=== PATIENT | female | born 1960 | race Caucasian/White ===

== ENCOUNTER 2022-12-24 23:26 | Emergency (ER) | payer SELFPAY ==
[2022-12-25] MEDS ORDERED: ETOMIDATE 20 MG/10 ML VIAL IV ONE (01:29)
[2022-12-25] MEDS ORDERED: FENTANYL CITR 100 MCG/2 ML ONE (01:29)
[2022-12-25] MEDS ORDERED: ONDANSETRON 4 MG/2 ML VIAL ONE (01:32)
--- NOTE | 2022-12-25 02:09 | EDPHYS ---
Physician Documentation [facility] Name: Georgiana Love Age: 62 yrs Sex: Female : 1960 Arrival Date: 12/24/2022 Time: 23:26 Bed Treatment Private MD: ED Physician Aaron Cruz HPI: 12/24 23:39 This 62 yrs old Female presents to ER via Ambulatory with complaints of Wrist Injury. jmm 23:39 Is a 62-year-old female with history of hypertension, osteoarthritis the presents jmm emerged part with complaints of right wrist pain after tripping and falling. Denies hitting her head.. Historical: - Allergies: 23:44 No Known Allergies; kl - PMHx: 23:44 Hypertensive disorder; Osteoarthritis; Osteoporosis; neuropathy; kl - PSHx: 23:44 back; kl - Immunization history:: Adult Immunizations not immunized. - Social history:: Smoking status: Patient denies any tobacco usage or history of. ROS: 23:39 Constitutional: Negative for fever, chills, and weight loss, Cardiovascular: Negative [facility] for chest pain, palpitations, and edema, Respiratory: Negative for shortness of breath, cough, wheezing, and pleuritic chest pain. 23:39 MS/extremity: Positive for injury or acute deformity. 23:39 All other systems are negative. Exam: 23:39 Hand exam: Exam is positive for deformity. [facility] 23:39 Constitutional: This is a well developed, well nourished patient who is awake, alert, and in no acute distress. Head/Face: atraumatic. Eyes: EOMI, no conjunctival erythema appreciated ENT: Moist Mucus Membranes Neck: Trachea midline, Supple Chest/axilla: Normal chest wall appearance and motion. Cardiovascular: Regular rate and rhythm. No edema appreciated Respiratory: Normal respirations, no respiratory distress appreciated Abdomen/GI: Non distended Back: Normal ROM Skin: General appearance color normal 23:39 Musculoskeletal/extremity: ROM: intact in all extremities, Deformity noted to the right wrist, full radial pulse, compartments are soft, neurovascular. 23:39 Skin: Appearance: Color: normal in color. 23:39 Neuro: Motor: is normal. 23:39 Psych: Behavior/mood is pleasant, cooperative. Vital Signs: 23:43 BP 133 / 90; Pulse 71; Resp 18; Temp 97.5(TE); Pulse Ox 97% on R/A; Weight 56.7 kg (R); kl Height 5 ft. 8 in. ; Pain 11/10; 12/25 01:00 BP 138 / 79; Pulse 80; Resp 16; Pulse Ox 100% on R/A; pf1 01:42 BP 141 / 92; Pulse 89; Resp 18; Pulse Ox 99% on 2 lpm NC; pf1 01:46 BP 135 / 73; Pulse 85; Resp 16; Pulse Ox 100% on 2 lpm NC; pf1 01:47 BP 133 / 93; Pulse 89; Resp 16; Pulse Ox 99% on R/A; pf1 01:52 BP 132 / 76; Pulse 79; Resp 18; Pulse Ox 100% ; Pain /10; pf1 01:57 BP 131 / 81; Pulse 68; Resp 16; Temp 98.3; Pulse Ox 100% on R/A; Pain /10; pf1 02:30 BP 137 / 71; Pulse 69; Resp 16; Pulse Ox 100% on R/A; Pain /10; pf1 12/24 23:43 Body Mass Index 19.01 (56.70 kg, 172.72 cm) kl 12/24 23:43 Pain Scale: Adult kl 01:52 Pain Scale: Adult pf1 01:57 Pain Scale: Adult pf1 02:30 Pain Scale: Adult pf1 Procedures: 12/24 23:39 Reduction: of the right wrist, using traction, manipulation, Immobilized with [facility] Sugar-tong Ortho-Glass. Patient tolerated well. Post reduction film - reveals improved alignment. MDM: 23:39 Patient medically screened. [facility] 12/25 02:07 Differential diagnosis: closed fracture. Data reviewed: vital signs, nurses notes, [facility] radiologic studies, plain films. I considered the following discharge prescriptions or medication management in the emergency department Medications were administered in the Emergency Department. See MAR. Independent interpretation of the following test(s) in the Emergency Department X-Ray: My interpretation is Distal radius fracture. Counseling: I had a detailed discussion with the patient and/or guardian regarding: the historical points, exam findings, and any diagnostic results supporting the discharge/admit diagnosis, radiology results, the need for outpatient follow up, to return to the emergency department if symptoms worsen or persist or if there are any questions or concerns that arise at home. 12/24 23:39 Order name: Wrist Right 3 View XRAY [facility] 12/25 01:49 Order name: Wrist Right 3 View XRAY [facility] 12/24 23:39 Order name: Saline Lock; Complete Time: 00:00 [facility] 12/24 23:55 Order name: Conscious Sedation; Complete Time: 08:35 [facility] 12/24 23:56 Order name: Sugar Tong Forearm Splint; Complete Time: 08:34 [facility] 12/24 23:56 Order name: Sling; Complete Time: 08:34 [facility] Administered Medications: 01:15 Drug: Ondansetron IVP 4 mg Route: IVP; Site: left antecubital; pf1 02:15 Follow up: Response: No adverse reaction; Marked relief of symptoms pf1 01:41 Drug: Etomidate IVP 20 mg Route: IVP; Site: left antecubital; pf1 02:40 Follow up: Response: No adverse reaction; Marked relief of symptoms; Pain is decreased; pf1 RASS: Alert and Calm (0) 08:34 Not Given (Physician Discretion): fentaNYL (PF) IVP 50 mcg IVP once pf1 Disposition: 08:42 Co-signature as Attending Physician, Aaron Cruz MD I agree with the assessment sp4 and plan of care. I reviewed the patient's care provided by the Advanced Practice Provider and agree with the diagnosis and treatment plan. Disposition Summary: 12/25/22 02:08 Discharge Ordered Location: Home [facility] Condition: Stable [facility] Diagnosis - Distal radial fracture [facility] Followup: [facility] - With: Frandy Ferguson MD - When: 2 - 3 days - Reason: Recheck today's complaints, Continuance of care, Re-evaluation by your physician Discharge Instructions: - Discharge Summary Sheet [facility] - Radial Fracture [facility] Forms: - Medication Reconciliation Form [facility] - Thank You Letter [facility] - Antibiotic Education [facility] - Prescription Opioid Use [facility] Prescriptions: - acetaminophen-codeine 300-15 mg Oral tablet - take 1 tablet by ORAL route every 4 hours As needed as needed for pain; 30 jmm tablet; Refills: 0, Product Selection Permitted Signatures: Dispatcher [facility] Olga Borrego RN RN kl Mickail, Joel, PA PA jmm Finley, Pamala, RN RN pf1 Aaron Cruz MD MD sp4 Corrections: (The following items were deleted from the chart) 00:13 12/24 23:40 Misc. Order ordered. sarah pf1
--- NOTE | 2022-12-25 02:09 | ER ---
Nurse's Notes [facility] Name: Georgiana Love Age: 62 yrs Sex: Female : 1960 Arrival Date: 12/24/2022 Time: 23:26 Bed Treatment Private MD: Diagnosis: Distal radial fracture Presentation: 12/24 23:35 Chief complaint:. kl 23:43 Chief complaint: Patient states: missed step and fell hurting my right wrist. kl Coronavirus screen: Vaccine status: Patient reports receiving the 2nd dose of the covid vaccine. Ebola Screen: Patient negative for fever greater than or equal to 101.5 degrees Fahrenheit, and additional compatible Ebola Virus Disease symptoms. Initial Sepsis Screen: Does the patient meet any 2 criteria? No. Patient's initial sepsis screen is negative. Does the patient have a suspected source of infection? No. Patient's initial sepsis screen is negative. Risk Assessment: Do you want to hurt yourself or someone else? Patient reports no desire to harm self or others. 23:43 Method Of Arrival: Ambulatory kl 23:43 Acuity: RYAN 3 kl Triage Assessment: 23:45 General: Appears distressed, uncomfortable, Behavior is cooperative. Pain: Complains of kl pain in right wrist Pain currently is 3 out of 10 on a pain scale. at worst was 10 out of 10 on a pain scale. Aggravated by increased activity. Musculoskeletal: Capillary refill < 3 seconds, Bony deformity noted of right wrist. Injury Description: Deformity. Historical: - Allergies: 23:44 No Known Allergies; kl - PMHx: 23:44 Hypertensive disorder; Osteoarthritis; Osteoporosis; neuropathy; kl - PSHx: 23:44 back; kl - Immunization history:: Adult Immunizations not immunized. - Social history:: Smoking status: Patient denies any tobacco usage or history of. Screenin:45 [facility] ED Fall Risk Assessment (Adult) History of falling in the last 3 months, pf1 including since admission Yes- single mechanical fall (1 pt) Confusion or Disorientation No (0 pts) Intoxicated or Sedated No (0 pts) Impaired Gait Yes (1 pt) Mobility Assist Device Used Yes (1 pt) Altered Elimination No (0 pt) Score/Fall Risk Level 3 or more points = High Risk Oriented to surroundings, Maintained a safe environment, Educated pt \T\ family on fall prevention, incl call for assistance when getting out of bed, Assessed \T\ reinforced patient's understanding of fall precautions, Provided non-skid footwear, Hourly rounding (assess needs \T\ fall precautionary measures) done, Used ambulatory aids as needed (educated on \T\ assisted with), Used gait belt as appropriate Implemented a Fall Risk Plan of Care, Apply high fall risk patient identification: yellow non skid footwear/ fall signage, Remained w/in arm's length of patient and in sight while toileting, Offered frequent toileting (1:1 observation), Remained with patient while ambulating, Utilized family, sitter, or virtual dietary manager as indicated. 23:45 Abuse screen: Denies threats or abuse. Nutritional screening: No deficits noted. pf1 Tuberculosis screening: No symptoms or risk factors identified. Assessment: 23:43 General: Appears in no apparent distress. uncomfortable, well groomed, well developed, pf1 Behavior is calm, cooperative, appropriate for age, quiet. 23:43 Pain: Complains of pain in right arm and right wrist Pain currently is 10 out of 10 on pf1 a pain scale. Neuro: No deficits noted. Level of Consciousness is awake, alert, obeys commands, Oriented to person, place, time, situation. Cardiovascular: No deficits noted. Capillary refill < 3 seconds Patient's skin is warm and dry. Respiratory: No deficits noted. Airway is patent Trachea midline Respiratory effort is even, unlabored, Respiratory pattern is regular, symmetrical. GI: No deficits noted. No signs and/or symptoms were reported involving the gastrointestinal system. : No deficits noted. No signs and/or symptoms were reported regarding the genitourinary system. EENT: No deficits noted. No signs and/or symptoms were reported regarding the EENT system. Derm: No deficits noted. No signs and/or symptoms reported regarding the dermatologic system. Musculoskeletal: Reports pain in right arm and right wrist Pain is 10 out of 10 on a pain scale. 12/25 01:00 Reassessment: Patient appears in no apparent distress at this time. Patient and/or pf1 family updated on plan of care and expected duration. Pain level reassessed. Patient is alert, oriented x 3, equal unlabored respirations, skin warm/dry/pink. Patient states symptoms have not improved. 01:40 Reassessment: Time out performed for reduction to right wrist. pf1 01:40 Reassessment: see paper charting for conscious sedation charting. pf1 02:00 Reassessment: Patient appears in no apparent distress at this time. Patient and/or pf1 family updated on plan of care and expected duration. Pain level reassessed. Patient is alert, oriented x 3, equal unlabored respirations, skin warm/dry/pink. Patient states feeling better. Patient states symptoms have improved. Vital Signs: 12/24 23:43 BP 133 / 90; Pulse 71; Resp 18; Temp 97.5(TE); Pulse Ox 97% on R/A; Weight 56.7 kg (R); kl Height 5 ft. 8 in. ; Pain 11/10; 12/25 01:00 BP 138 / 79; Pulse 80; Resp 16; Pulse Ox 100% on R/A; pf1 01:42 BP 141 / 92; Pulse 89; Resp 18; Pulse Ox 99% on 2 lpm NC; pf1 01:46 BP 135 / 73; Pulse 85; Resp 16; Pulse Ox 100% on 2 lpm NC; pf1 01:47 BP 133 / 93; Pulse 89; Resp 16; Pulse Ox 99% on R/A; pf1 01:52 BP 132 / 76; Pulse 79; Resp 18; Pulse Ox 100% ; Pain 1/10; pf1 01:57 BP 131 / 81; Pulse 68; Resp 16; Temp 98.3; Pulse Ox 100% on R/A; Pain 1/10; pf1 02:30 BP 137 / 71; Pulse 69; Resp 16; Pulse Ox 100% on R/A; Pain 1/10; pf1 12/24 23:43 Body Mass Index 19.01 (56.70 kg, 172.72 cm) kl 12/24 23:43 Pain Scale: Adult kl 01:52 Pain Scale: Adult pf1 01:57 Pain Scale: Adult pf1 02:30 Pain Scale: Adult pf1 ED Course: 12/24 01:40 Assist provider with reduction of right wrist using manipulation, Set up for procedure. pf1 Performed by Fernando GUZMAN Immobilized with orthoglass with sling Patient tolerated well. 23:30 Patient arrived in ED. es 23:30 Fernando Starks PA is PHCP. jmm 23:30 Aaron Cruz MD is Attending Physician. [facility] 23:44 Triage completed. kl 23:45 Patient has correct armband on for positive identification. Bed in low position. Call pf1 light in reach. Side rails up X 1. 23:45 Arm band placed on left wrist. pf1 12/25 00:01 Inserted saline lock: 20 gauge in left antecubital area, using aseptic technique. bc6 00:18 Wrist Right 3 View XRAY In Process Unspecified. EDMS 01:47 Orthoglass splint: Sugar tong splint applied on right arm. Sling \T\ swathe to right arm. pf1 02:08 Frandy Ferguson MD is Referral Physician. jm 02:16 Wrist Right 3 View XRAY In Process Unspecified. EDMS 02:44 Lyndsay Alvarez, RUBY is Primary Nurse. pf1 02:45 IV discontinued, intact, bleeding controlled, No redness/swelling at site. Pressure pf1 dressing applied. Administered Medications: 01:15 Drug: Ondansetron IVP 4 mg Route: IVP; Site: left antecubital; pf1 02:15 Follow up: Response: No adverse reaction; Marked relief of symptoms pf1 01:41 Drug: Etomidate IVP 20 mg Route: IVP; Site: left antecubital; pf1 02:40 Follow up: Response: No adverse reaction; Marked relief of symptoms; Pain is decreased; pf1 RASS: Alert and Calm (0) 08:34 Not Given (Physician Discretion): fentaNYL (PF) IVP 50 mcg IVP once pf1 Medication: 02:45 VIS not applicable for this client. pf1 Outcome: 02:08 Discharge ordered by . [facility] 02:40 Discharged to home via wheelchair, with family. pf1 02:40 Condition: improved 02:40 Discharge instructions given to patient, family, Instructed on discharge instructions, follow up and referral plans. Demonstrated understanding of instructions, follow-up care, medications, Prescriptions given X 1. 02:45 Patient left the ED. pf1 Signatures: Dispatcher [employer] Olga Borrego, RN RN Fernando Trivedi PA PA jmm Salyer, Edna es Finley, Pamala, RN RN pf1 [facility] bc6
[2022-12-25 02:58] VITALS: BP 133/90; TEMP 97.5; O2SAT 97
--- NOTE | 2022-12-25 21:30 | RAD REPORT ---
EXAM DESCRIPTION: RAD - Wrist Right 3 View - 12/25/2022 2:14 am CLINICAL HISTORY: The patient is 62 years old and is Female; post reduction, Wrist Right 3 View [facility] MAIN TECHNIQUE: Frontal, lateral and oblique views of the right wrist. COMPARISON: 12/24/2022 right wrist radiographs at 23: 45 hours FINDINGS/IMPRESSION: BONES/JOINTS: Interval reduction of previously demonstrated comminuted fractu re of the right distal radial metaphysis with suspected intra-articular extension, with improved lucretia omic alignment of the fracture fragments and radiocarpal joint on lateral view. Interval splinting material demonstrated about the visualized right forearm and wrist, partia lly obscuring underlying soft tissues and bones. No additional fractures are identified. SOFT TISSUES: See above. Electronically signed by: Bari Ring MD 12/25/2022 2:32 AM CDT Due to temporary technical issues with the PACS/Fluency reporting system, reports are being signed by the in house radiologists without review as a courtesy to insure prompt reporting. The interpreting radiologist is fully responsible for the content of the report.
--- NOTE | 2022-12-25 21:32 | RAD REPORT ---
EXAM DESCRIPTION: RAD - Wrist Right 3 View - 12/25/2022 12:17 am CLINICAL HISTORY: 62 years, Female, fall, deformity Wrist Right 3 View COMPARISON: None FINDINGS: 3 X-ray views of the right wrist (Frontal, lateral and oblique views) were performed. Ther e is mild diffuse bony osteopenia. There is a fragmented fracture distal portion of the radius with t he slight dorsal angulation of the distal fragment site. The ulna is unremarkable. There are no doug ss intraosseous lesions. No periosteal reaction were seen. IMPRESSION: Slightly angulated fracture of the distal radius. Electronically signed by: Mike De MD 12/25/2022 12:48 AM CDT Due to temporary technical issues with the PACS/Fluency reporting system, reports are being signed by the in house radiologists without review as a courtesy to insure prompt reporting. The interpreting radiologist is fully responsible for the content of the report.
== END 2022-12-25 02:45 | disposition home or self-care (01) ==
LOC: ER 23:26
PROC: 0PSH35Z Reposition Right Radius with External Fixation Device, Percutaneous Approach (ICD-10-PCS; principal; 2022-12-25)
DX: S52.501A Unspecified fracture of the lower end of right radius, initial encounter for closed fracture (principal)
CPT/HCPCS: 96374; 96375; 99285; J2405; J3010